=== PATIENT | male | born 1975 | race Caucasian/White ===

== ENCOUNTER → 2017-05-23 | Outpatient (CLI) | payer MEDICARE, MEDICAID ==
[~2017-05-23] MED LIST: DEXI30CA2 PO; FURO20TA2 PO; GAS-80CH PO; IBUPOTC PO; METO1TAB33 PO; PERCOCET PO; SERT-138 PO
[2017-05-23 13:53] LABS: MEAN CORPUSCULAR HEMOGLOBIN 31.6 pg (27.0-33.0); MEAN CORPUSCULAR VOLUME 90.2 fl (80.0-96.0); PLATELET COUNT, AUTOMATED 206 10^3/uL (150-450); RED CELL DISTRIBUTION WIDTH 12.5 % (11.5-14.5); WHITE BLOOD COUNT 7.9 10^3/uL (4.0-10.0)
[2017-05-23 14:51] LABS: VITAMIN B12 LEVEL 529 PG/ML (247-911)
[2017-05-23 14:53] LABS: ALBUMIN/GLOBULIN RATIO 1.14 (1.00-1.93); ALKALINE PHOSPHATASE 74 U/L (45-117); ALT/SGPT 71 U/L (12-78); ANION GAP 8 MEQ/L (8-16); AST/SGOT 38 U/L (15-37); BILIRUBIN,TOTAL 1.4 MG/DL (0.2-1.0); BLOOD UREA NITROGEN 17 MG/DL (7-18); CALCIUM LEVEL 8.8 MG/DL (8.5-10.1); CARBON DIOXIDE LEVEL 28 MEQ/L (21-32); CHLORIDE LEVEL 104 MEQ/L (98-107); CREATININE FOR GFR 1.22 MG/DL (0.70-1.30); GLOMERULAR FILTRATION RATE > 60.0 (>60); GLUCOSE, FASTING 68 MG/DL (70-105); POTASSIUM SERUM 3.3 MEQ/L (3.5-5.1); SODIUM LEVEL 140 MEQ/L (136-145); TOTAL PROTEIN 7.5 GM/DL (6.4-8.2)
== END ==
LOC: M LAB 11:38
PROVIDERS: ATTEND Internal Medicine Gastroenterology
DX: R10.12 Left upper quadrant pain (principal); R10.84 Generalized abdominal pain; K86.1 Other chronic pancreatitis; K59.1 Functional diarrhea; R11.0 Nausea; R63.4 Abnormal weight loss; K21.9 Gastro-esophageal reflux disease without esophagitis

== ENCOUNTER → 2017-09-03 | Outpatient (REF) | payer MEDICARE, MEDICAID | LOC: M LAB REF 11:53 | DX: K59.1 Functional diarrhea (principal); K21.9 Gastro-esophageal reflux disease without esophagitis; R11.0 Nausea; K86.1 Other chronic pancreatitis; R10.84 Generalized abdominal pain | CPT/HCPCS: 83630 ==

== ENCOUNTER → 2017-09-24 | Outpatient (CLI) | payer MEDICARE, MEDICAID | LOC: M RAD 07:31 | DX: R10.84 Generalized abdominal pain (principal); K59.1 Functional diarrhea; R11.0 Nausea | CPT/HCPCS: 78264 ==

== ENCOUNTER → 2018-06-23 | Outpatient (REF) | payer MEDICARE, MEDICAID ==
[2018-06-23 11:56] LABS: ANION GAP 8 MEQ/L (8-16); BLOOD UREA NITROGEN 16 MG/DL (7-18); CALCIUM LEVEL 8.9 MG/DL (8.5-10.1); CARBON DIOXIDE LEVEL 25 MEQ/L (21-32); CHLORIDE LEVEL 105 MEQ/L (98-107); CREATININE FOR GFR 1.25 MG/DL (0.70-1.30); GLOMERULAR FILTRATION RATE > 60.0 (>60); GLUCOSE, FASTING 106 MG/DL (70-100); POTASSIUM SERUM 4.1 MEQ/L (3.5-5.1); SODIUM LEVEL 138 MEQ/L (136-145)
== END ==
LOC: M SFHCCLAY 07:46
DX: I10 Essential (primary) hypertension (principal)
CPT/HCPCS: 80048

== ENCOUNTER → 2018-06-24 | Outpatient (REF) | payer MEDICARE, MEDICAID ==
[2018-06-24 13:42] LABS: ESTIMATED AVERAGE GLUCOSE 117 MG/DL (60-110); HEMOGLOBIN A1c 5.7 %
== END ==
LOC: M SFHCCLAY 08:37
DX: R73.01 Impaired fasting glucose (principal)
CPT/HCPCS: 83036

== ENCOUNTER → 2019-06-01 | Outpatient (REF) | payer MEDICARE, MEDICAID ==
[2019-06-01 13:23] LABS: ALBUMIN 3.8 GM/DL (3.2-5.2); CALCIUM LEVEL 9.1 MG/DL (8.5-10.1); CHOLESTEROL RISK RATIO 5.225 (<5); CREATININE FOR GFR 1.4 MG/DL (0.70-1.30); GLOMERULAR FILTRATION RATE 58.3 (>60); POTASSIUM SERUM 4.1 MEQ/L (3.5-5.1)
== END ==
LOC: M SFHCCLAY 07:52
PROVIDERS: ATTEND Family Medicine
DX: Z00.00 Encounter for general adult medical examination without abnormal findings (principal); I11.9 Hypertensive heart disease without heart failure; Z13.220 Encounter for screening for lipoid disorders

== ENCOUNTER → 2019-06-05 | Outpatient (REF) | payer MEDICARE, MEDICAID | LOC: M LAB REF 13:55 | PROVIDERS: ATTEND Plastic Surgery Surgery of the Hand | DX: D49.2 Neoplasm of unspecified behavior of bone, soft tissue, and skin (principal) ==

== ENCOUNTER 2019-08-14 08:19 | Day surgery (SDC) | payer MEDICARE, MEDICAID ==
[~2019-08-14] VITALS: Ht 180.3 cm; Wt 125.4 kg
[~2019-08-14 08:19] MED LIST changes: +AMPICILLIN SOD/SULBACTAM SOD 3 GM in D5W MINI-BAG PLUS 100 ML IV ONE; +CREO12CA PO; +CVS1CAP2 PO; +D32000TA PO; +LIDOCAINE 1% MDV 20ML VIAL SQ PRN; +LR 1,000 ML IV ONE; +OMEP-221 PO
[2019-08-14] MEDS ORDERED: ONDANSETRON 4MG/2ML VIAL (J2405) As Ordered ONE (09:50)
[2019-08-14] MEDS ORDERED: LIDOCAINE 2% INJ 100 MG/5 ML SDV (FOR ANES.) As Ordered ONE (09:50)
[2019-08-14] MEDS ORDERED: dexameTHASONE 4 MG/ML 1ML VIAL (J1100) As Ordered ONE (09:50)
[2019-08-14] MEDS ORDERED: propofoL 200 MG/20 ML VIAL As Ordered ONE (09:50)
[2019-08-14] MEDS ORDERED: KETOROLAC 60 MG/2 ML VIAL (J1885) As Ordered ONE (09:50)
[2019-08-14] MEDS ORDERED: ROCURONIUM BROMIDE 50 MG/5 ML VIAL As Ordered ONE (09:50)
[2019-08-14] MEDS ORDERED: MIDAZOLAM INJ 2 MG/2 ML VIAL (J2250) As Ordered ONE (09:51)
[2019-08-14] MEDS ORDERED: fentaNYL 100 MCG/2 ML INJECTION (J3010) As Ordered ONE ×2 (09:51→11:23)
[2019-08-14] MEDS ORDERED: SUGAMMADEX SODIUM 500 MG/5 ML VIAL (BRIDION) As Ordered ONE (09:58)
[2019-08-14] MEDS ORDERED: BUPIVACAINE HCL 0.25% 30 ML VIAL As Ordered ONE (10:20)
[2019-08-14] MEDS ORDERED: LIDOCAINE 1% SDV INJ 30 ML VIAL As Ordered ONE (10:20)
[2019-08-14] MEDS ORDERED: CONRAY-60 60% 50ML VIAL (Q9961) As Ordered ONE (10:20)
[2019-08-14] MEDS ORDERED: LABETALOL HCL 100 MG/20 ML VIAL As Ordered ONE (11:39)
[2019-08-14] MEDS ORDERED: GLUCAGON FOR INJ 1 MG VIAL (J1610) As Ordered ONE (12:23)
[2019-08-14] MEDS ORDERED: HYDROmorphone HCL 2 MG/ML 1ML VIAL (J1170) As Ordered ONE (12:28)
[2019-08-14] MEDS ORDERED: hydrALAZINE INJ 20 MG/ML VIAL As Ordered ONE (12:49)
--- NOTE | 2019-08-14 13:26 | REP ---
Intraoperative cholangiogram: Three views. History: Chronic cholecystitis. 22 seconds of fluoroscopy time is reported. Findings: A sequence of three last image hold fluoroscopically obtained spot radiographs of the upper abdomen taken during cystic duct contrast injection demonstrate normal caliber common bile duct with contrast in the duodenal C-loop. No filling defect is seen in the visualized bile ducts. Electronically Signed by Chance Burton MD 08/14/2019 01:17 P
[2019-08-14] MEDS: PERCOCET 5MG/325MG TAB PO PRN ×2 (13:35→14:05)
[2019-08-14] MEDS ORDERED: LR 1,000 ML IV SCH ×2 (14:00→15:00)
[2019-08-14] MEDS ORDERED: MORPHINE 2 MG/ML 1ML VIAL (J2270) IV PRN ×2 (14:00→15:00)
[2019-08-14] MEDS ORDERED: ONDANSETRON 4MG/2ML VIAL (J2405) IV PRN ×3 (14:00→15:00)
[2019-08-14] MEDS ORDERED: fentaNYL 100 MCG/2 ML INJECTION (J3010) IV PRN ×2 (14:00→15:00)
[2019-08-14] MEDS ORDERED: METOCLOPRAMIDE INJ 10MG/2ML VIAL (J2765) As Ordered ONE (14:27)
[2019-08-14] MEDS ORDERED: NORCO, ANEXSIA 5/325MG TABLET (HYDROcodone/ACETAMINOPHEN) PO PRN ×2 (15:00)
[2019-08-14] MEDS ORDERED: KETOROLAC 30 MG/ML VIAL (J1885) IV PRN (15:00)
[2019-08-14] MEDS ORDERED: PERCOCET 5MG/325MG TAB PO PRN (15:00)
--- NOTE | 2019-08-14 15:08 | ROOPDOC ---
[facility] Report Of Operation Report of Operation DATE OF PROCEDURE: 08/14/19 PREPROCEDURE DIAGNOSES: Chronic cholecystitis, recurrent pancreatitis. POSTPROCEDURE DIAGNOSES: Same. PROCEDURE: Laparoscopic cholecystectomy with intraoperative cholangiogram. 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 anesthesia. ESTIMATED BLOOD LOSS: Approximately 20 mL. COMPLICATIONS: None. SPECIMEN: Gallbladder. PROCEDURE NOTE: Intraoperative cholangiogram was performed. This shows normal- appearing biliary tree filling dilatation. No signs of obstruction, stricture or intra-luminal filling defect found.. DESCRIPTION OF PROCEDURE: Patient was given a dose Unasyn 3 g IV preoperatively for prophylaxis. She was brought to the operating room, laid supine on the table, compression boots placed for DVT prophylaxis. General endotracheal anesthesia started. Her abdomen then prepped and draped in usual sterile fashion.We paused for a surgical timeout using both pre-incision safety checklist to verify correct patient, procedure site and additional clinical information prior to beginning the procedure Entry into the abdomen done through an incision about 5 cm above the umbilicus which is located quite low in his abdomen almost at the ASIS level. A Veress needle was inserted with a controlled fashion. CO2 insufflation started to pressure 15 mmHg. Using the same incision a 5 mm Visiport was placed under direct vision laparoscope. The area underneath the insertion site was inspected and no injury found. She was then placed in steep reverse Trendelenburg. Her right side was tilted up to further expose the gallbladder. Under direct vision a 11 mm epigastric port and 25 mm working ports placed along the right subcostal line. Operative findings: On initial laparoscopy, he had some omentum adhered to the underside of the gallbladder. The gallbladder is tensely distended which needed to be decompressed. This was thick-walled and infiltrated thick adipose tissue throughout the mid body and neck of the gallbladder. His liver is fatty replaced in appearance, mildly enlarged. To be able to grasp the fundus of gallbladder decompressed this using an aspirating needle connected to a 60 mL syringe. Thick greenish bile was aspirated. The fundus of the gallbladder was grasped and the gallbladder was elevated superiorly exposing the neck of the gallbladder. Most of the gallbladder is densely adhered to the liver without clear definition of the infundibulum. I started open up the thick adipose fat pad at the lower body of the gallbladder both medially and laterally and started working on freeing up the omentum and both sides to allow for better lateral retraction and allow for infundibular retraction technique. Once I was able to better define the infundibulum we followed this with mostly blunt dissection using the [place] instrument this we approached the hepatocystic triangle. The peritoneum overlying the area was opened up and dissected free both anteriorly and posteriorly to help with retraction of the gallbladder. The hepatocystic triangle was approached and dissected using a [place] and instrument. The cystic duct was identified coming off from the next gallbladder this was circumferentially dissected. The cystic artery was identified medial to the course of the cystic duct which was quite intimately located to the course cystic duct. This too structures were circumferentially dissected. The cystic plate posterior to the gallbladder neck were bluntly dissected. Critical view of safety was achieved confirming the 2 previously identified structures. No other documentation was used. I clipped the cystic artery and divided this to free up the neck of the gallbladder and cystic duct better. 2 clips were placed at the gallbladder cystic duct junction and a partial ductotomy was performed. Cholangiocatheter catheter was placed under direct vision coming off the epigastric port site. There are some difficulty threading the cholangiogram catheter due to more vertical course of the cystic duct was eventually was able to place the cholangiogram catheter. A trial of saline injection shows no leakage. A clip was temporarily placed at the site of ductotomy to hold the catheter in place. I asked anesthesia to give 1 mg of glucagon intravenously to allow for relaxation of the sphincter of Oddi. The C-arm was positioned in place in the cholangiogram was performed under my direction. I used Conray (50/50). I interpreted the images myself. There was good demonstration of the whole biliary tree including that of the left and right hepatic ducts. We followed this to the common bile duct. There was good flow of contrast into the duodenal C-loop. The biliary tree appears normal in configuration. There was no noticeable dilation, stenosis or intraluminal filling defect. I then continued on with the cholecystectomy. Patient was repositioned back and pneumoperitoneum was reestablished. The cholangiogram catheter was removed. 3 clips were placed proximal to the ductotomy and the cystic duct was divided. The gallbladder was dissected off the liver plate without difficulty. There was some bleeding spots that the hepatic plate at the mid body which was controlled with Bovie cautery. The gallbladder was then placed in an Endo Catch bag and delivered through the epigastric port site which I did have to enlarge. Palpating externally I did not feel any stones inside that of the gallbladder. I performed irrigation and suctioned off visible fluid collections. After checking for adequate placement of clips and hemostasis, the epigastric port site was closed with 0 Vicryl using a Júnior-Corby device. The abdomen was deflated, all ports were removed. All skin incisions were closed with 4-0 Monocryl in subcuticular fashion Steri-Strips and gauze dressings covered with Tegaderm was then placed on all port incisions. Patient tolerated procedure well and was subsequently extubated and brought to recovery room in stable condition. HUMBERTO LARES MD Aug 14, 2019 15:08
[2019-08-14 15:45] VITALS: BP 138/71
[2019-08-14] MEDS ORDERED: METOCLOPRAMIDE INJ 10MG/2ML VIAL (J2765) IV PRN (20:00)
== END 2019-08-14 15:50 | disposition home or self-care (01) ==
LOC: M SDC 08:19
PROVIDERS: ATTEND Surgery
DX: K81.1 Chronic cholecystitis (principal); I10 Essential (primary) hypertension; K44.9 Diaphragmatic hernia without obstruction or gangrene; N18.3 Chronic kidney disease, stage 3 (moderate); Z79.899 Other long term (current) drug therapy
CPT/HCPCS: 47563; 74300; 88304; J1100; J1170; J1610; J1885; J2250; J2405; J2765; J3010; Q9961

== ENCOUNTER → 2019-08-24 | Outpatient (REF) | payer MEDICARE, MEDICAID ==
[~2019-08-24] MED LIST changes: -AMPICILLIN SOD/SULBACTAM SOD 3 GM in D5W MINI-BAG PLUS 100 ML IV ONE; -LIDOCAINE 1% MDV 20ML VIAL SQ PRN; -LR 1,000 ML IV ONE
[2019-08-24 18:28] LABS: HEMOGLOBIN A1c 5.5 %
== END ==
LOC: M SFHCCLAY 10:07
PROVIDERS: ATTEND Family Medicine
DX: Z13.1 Encounter for screening for diabetes mellitus (principal); Z79.899 Other long term (current) drug therapy

== ENCOUNTER → 2019-08-24 | Outpatient (CLI) | payer MEDICARE, MEDICAID ==
--- NOTE | 2019-08-24 19:08 | REP ---
Right foot four views : There is no fracture or dislocation. Mineralization and joint spaces are normal. There are no calcifications or foreign bodies. There are large calcaneal Achilles and plantar spurs. Impression: There are large calcaneal spurs, otherwise, negative right foot . Electronically Signed by Marcus Mccray MD 08/24/2019 07:00 P
== END ==
LOC: M CLY 10:14
PROVIDERS: ATTEND Family Medicine
DX: M77.31 Calcaneal spur, right foot (principal); M79.671 Pain in right foot; Z13.1 Encounter for screening for diabetes mellitus; Z79.899 Other long term (current) drug therapy

== ENCOUNTER → 2021-02-01 | Outpatient (REF) | payer MEDICARE, MEDICAID | LOC: M LAB REF 16:54 | PROVIDERS: ATTEND Internal Medicine Nephrology | DX: N18.2 Chronic kidney disease, stage 2 (mild) (principal) ==

== ENCOUNTER → 2021-07-12 | Outpatient (CLI) | payer MEDICARE ==
--- NOTE | 2021-07-12 16:10 | REP ---
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 TECHNIQUE: Internal rotation, external rotation, and Y view. FINDINGS: Mild cortical irregularity and subtle spurring at the acromioclavicular joint. The subacromial space is normal. No periarticular calcifications or loose bodies are identified. There is subtle blunting to the glenoid rim. The humeral head is normal. There is no evidence for acute fracture or dislocation. IMPRESSION: Relatively mild degenerative changes at the acromioclavicular joint. <Electronically signed by Willian Bonner > 07/12/21 [id number]
== END ==
LOC: M CLY 15:48
PROVIDERS: ATTEND Family Medicine
DX: M19.012 Primary osteoarthritis, left shoulder (principal); M75.42 Impingement syndrome of left shoulder
CPT/HCPCS: 73030; G0463

== ENCOUNTER → 2021-07-13 | Outpatient (REF) | payer MEDICARE, MEDICAID ==
[2021-07-13 12:13] LABS: ALBUMIN 3.7 GM/DL (3.2-5.2); ALT/SGPT 58 U/L (12-78); BLOOD UREA NITROGEN 19 MG/DL (7-18); CALCIUM LEVEL 9.3 MG/DL (8.5-10.1); CARBON DIOXIDE LEVEL 26 MEQ/L (21-32); CHLORIDE LEVEL 109 MEQ/L (98-107); CHOLESTEROL LEVEL 196 MG/DL (<200); CHOLESTEROL RISK RATIO 5.025 (<5); CREATININE FOR GFR 1.21 MG/DL (0.70-1.30); GLOMERULAR FILTRATION RATE > 60.0 (>60); GLUCOSE, FASTING 90 MG/DL (70-100); HDL CHOLESTEROL 39 MG/DL (>40); HEMOGLOBIN A1c 5.2 %; LDL CHOLESTEROL 129 MG/DL (<100); NON-HDL-C 157 MG/DL; POTASSIUM SERUM 3.9 MEQ/L (3.5-5.1); SODIUM LEVEL 142 MEQ/L (136-145); TOTAL PROTEIN 7.1 GM/DL (6.4-8.2); TRIGLYCERIDES LEVEL 140 MG/DL (<150)
== END ==
LOC: M SFHCCLAY 07:36
PROVIDERS: ATTEND Family Medicine
DX: I10 Essential (primary) hypertension (principal); E78.2 Mixed hyperlipidemia

== ENCOUNTER → 2021-12-18 | Outpatient (CLI) | payer MEDICARE, MEDICAID ==
[~2021-12-18] MED LIST changes: -OMEP-221 PO; +OMEP40CA5 PO
== END ==
LOC: M PLAIMG 11-28 06:43 → M RAD 15:16
PROVIDERS: ATTEND Orthopaedic Surgery
DX: M75.42 Impingement syndrome of left shoulder (principal)

== ENCOUNTER → 2022-04-26 | Outpatient (REF) | payer MEDICARE, MEDICAID | LOC: M SFHCCLAY 07:26 | PROVIDERS: ATTEND Family Medicine | DX: I10 Essential (primary) hypertension (principal); K21.9 Gastro-esophageal reflux disease without esophagitis ==

== ENCOUNTER → 2022-09-28 | Outpatient (REF) | payer MEDICARE, MEDICAID ==
[2022-09-28 12:41] LABS: BLOOD UREA NITROGEN 19 MG/DL (9-23); CALCIUM LEVEL 8.8 MG/DL (8.5-10.1); CARBON DIOXIDE LEVEL 30 MMOL/L (20-31); CHLORIDE LEVEL 104 MMOL/L (98-107); CHOLESTEROL LEVEL 166 MG/DL (<200); CHOLESTEROL RISK RATIO 4.47 (<5); CREATININE FOR GFR 1.15 MG/DL (0.70-1.30); GLOMERULAR FILTRATION RATE > 60.0 (>60); GLUCOSE, FASTING 89 MG/DL (60-100); HDL CHOLESTEROL 37.1 MG/DL (>40); LDL CHOLESTEROL 109.7 MG/DL (<100); NON-HDL-C 129 MG/DL; SODIUM LEVEL 140 MMOL/L (136-145); THYROID STIMULATING HORMONE 1.302 uIU/ML (0.55-4.78); TRIGLYCERIDES LEVEL 96 MG/DL (<150)
== END ==
LOC: M SFHCCLAY 08:15
PROVIDERS: ATTEND Family Medicine
DX: I10 Essential (primary) hypertension (principal); K21.9 Gastro-esophageal reflux disease without esophagitis; F34.1 Dysthymic disorder